=== PATIENT | female | born 1985 | race Caucasian/White ===

== ENCOUNTER 2017-08-11 06:01 | Day surgery (SDC) | payer MEDICAID ==
[~2017-08-11 06:01] MED LIST: CLINDAMYCIN 900 MG/D5W (PMX) 50 ML IVPB; LACTATED RINGER'S 1,000 ML IV*
[2017-08-11] MEDS ORDERED: ROCURONIUM 50 MG INJ (07:24)
[2017-08-11] MEDS ORDERED: FENTAnyl 50 MCG/ML VIAL (07:24)
[2017-08-11] MEDS ORDERED: SUCCINYLCHOLINE CHLORIDE 100 MG/5 ML SYG IV (07:24)
[2017-08-11] MEDS ORDERED: PROPOFOL 20 ML (07:24)
[2017-08-11] MEDS ORDERED: LIDOCAINE 2% (SDV) 5 ML INJ (07:24)
[2017-08-11] MEDS ORDERED: MIDAZOLAM 1 MG/ML 2 ML INJ (07:25)
[2017-08-11] MEDS ORDERED: DEXAMETHASONE 4 MG/ML 1 ML INJ (07:25)
[2017-08-11] MEDS ORDERED: ONDANSETRON 4 MG INJ (07:25)
[2017-08-11] MEDS ORDERED: CEFAZOLIN 1 GM INJ (07:49)
[2017-08-11] MEDS ORDERED: SUGAMMADEX SODIUM 200 MG/2 ML VIAL IV (08:01)
[2017-08-11] MEDS ORDERED: KETOROLAC 30 MG INJ (08:05)
[2017-08-11] MEDS ORDERED: PHENYLephrine (100 MCG/ML) 5ML SYG (08:24)
[2017-08-11] MEDS ORDERED: MIDAZOLAM 1 MG/ML 2 ML INJ IV (08:30)
[2017-08-11] MEDS ORDERED: DIPHENHYDRAMINE 50 MG INJ IV (08:30)
[2017-08-11] MEDS ORDERED: MEPERIDINE 25 MG INJ IV (08:30)
[2017-08-11] MEDS ORDERED: FENTAnyl 50 MCG/ML VIAL IV (08:30)
[2017-08-11] MEDS ORDERED: HYDROmorphONE (0.2 MG/ML) 10ML SYG IV ×2 (08:30)
[2017-08-11] MEDS: BUPIVACAINE 0.5%/EPI (SDV) 30 ML INJ INJ (09:05)
[2017-08-11] MEDS: ONDANSETRON 4 MG INJ IV (09:30)
[2017-08-11] MEDS: FENTAnyl 50 MCG/ML VIAL IV (09:31)
== END 2017-08-11 10:33 | disposition home or self-care (01) ==
LOC: SDS 06:01
DX: Z30.2 Encounter for sterilization (principal); N83.8 Other noninflammatory disorders of ovary, fallopian tube and broad ligament
CPT/HCPCS: 58661; 84703; 88304